=== PATIENT | male | born 1965 | race Caucasian/White ===

== ENCOUNTER → 2025-02-14 11:30 | Outpatient (BNVA) | payer OTHER, SELFPAY | PROVIDERS: Family Provider Nurse Practitioner Family; PCP Nurse Practitioner Family; Visit Provider Nurse Practitioner Family | DX: I10 Essential (primary) hypertension (principal); R53.83 Other fatigue; Z13.220 Encounter for screening for lipoid disorders; N52.9 Male erectile dysfunction, unspecified | CPT/HCPCS: 80053; 80061; 84403; 84443; 85025 ==